=== PATIENT | female | born 1980 | race Caucasian/White ===

== ENCOUNTER 2017-11-21 18:11 | Emergency (ER) | payer BC, OTHER ==
[2017-11-21] MEDS ORDERED: TORAdol 30 mg Injection IM ONE (19:04)
--- NOTE | 2017-11-21 19:07 | ERPHSYRPT ---
- History of Present Illness Time Seen by Provider: 11/21/17 19:00 Source: patient Exam Limitations: no limitations Patient Subjective Stated Complaint: pt was test driving a 4 smith and put right foot down-reports pain and swelling-denies numbness or tingling Triage Nursing Assessment: pt pink warm and [id number] noted to right foot/ankle area-pedal pulse regular Physician History: 37 y/o female comes to the ER with complaints of right ankle pain after testing a 4 X 4 smith for her daughter and twisted her right ankle. Pt states she was not able to put any weight on it. Pt describes the pain as sharp, constant, 10/ 10, worse with movement and pt has not taken any pain meds. Method of Injury: twisted Occurred: just prior to arrival Quality: constant Severity of Pain-Max: severe Severity of Pain-Current: severe Lower Extremities Pain: ankle: right Modifying Factors: Improves With: nothing Associated Symptoms: none Allergies/Adverse Reactions: Latex, Natural Rubber Allergy (Mild, Verified 11/21/17 18:20) Hives states "not severe" Home Medications: No Home Meds [No Home Meds] 1 [facility] UD 02/28/16 [History] Hx Tetanus, Diphtheria Vaccination/Date Given: Yes Hx Influenza Vaccination/Date Given: No Hx Pneumococcal Vaccination/Date Given: No Immunizations Up to Date: Yes - Review of Systems Constitutional: No Fever, No Chills Eyes: No Symptoms Ears, Nose, & Throat: No Symptoms Respiratory: No Cough, No Dyspnea Cardiac: No Chest Pain, No Edema, No Syncope Abdominal/Gastrointestinal: No Abdominal Pain, No Nausea, No Vomiting, No Diarrhea Genitourinary Symptoms: No Dysuria Musculoskeletal: Joint Pain, Joint Swelling, No Back Pain, No Neck Pain Skin: No Rash Neurological: No Dizziness, No Focal Weakness, No Sensory Changes Psychological: No Symptoms Endocrine: No Symptoms All Other Systems: Reviewed and Negative - Past Medical History Pertinent Past Medical History: No Neurological History: No Pertinent History ENT History: No Pertinent History Cardiac History: No Pertinent History Respiratory History: No Pertinent History Endocrine Medical History: Other Musculoskeletal History: Degenerative Disk Disease GI Medical History: Hemorrhoids, Other History: No Pertinent History Psycho-Social History: Bipolar Female Reproductive Disorders: Uterine Cancer Other Medical History: states uterine cyst /cancerous removed yrs ago. - Past Surgical History Past Surgical History: Yes Neuro Surgical History: No Pertinent History Cardiac: No Pertinent History Respiratory: No Pertinent History Gastrointestinal: No Pertinent History Musculoskeletal: No Pertinent History Female Surgical History: No Pertinent History Other Surgical History: LEEP cyst/cervix at age 19,Ear tubes left,Adenoidectomy, D&C x five after five miscarriages,One live - Social History Smoking Status: Never smoker Exposure to second hand smoke: No Drug Use: none Patient Lives Alone: No - Female History Hx Last Menstrual Period: 11/04/17 Hx Now: No - Nursing Vital Signs Nursing Vital Signs: Initial Vital Signs Temperature 97.6 F 11/21/17 18:15 Pulse Rate 89 11/21/17 18:15 Respiratory Rate 18 11/21/17 18:15 Blood Pressure 145/97 11/21/17 18:15 O2 Sat by Pulse Oximetry 97 11/21/17 18:15 Pain Scale Pain Intensity 7 - Physical Exam General Appearance: alert Eyes, Ears, Nose, Throat Exam: moist mucous membranes Neck Exam: non-tender, supple Cardiovascular/Respiratory Exam: chest non-tender, normal breath sounds, regular rate/rhythm, no respiratory distress Gastrointestinal/Abdominal Exam: non-tender, guarding Back Exam: normal inspection, No vertebral tenderness Hips Exam: bilateral: non-tender, normal inspection, normal range of motion, no evidence of injury Legs Exam: bilateral leg: non-tender, normal inspection, normal range of motion , no evidence of injury Knees Exam: bilateral knee: non-tender, normal inspection, normal range of motion, no evidence of injury Ankle Exam: right ankle: limited range of motion, pain, soft tissue tenderness, swelling Foot Exam: right foot: limited range of motion, pain, soft tissue tenderness, swelling Neuro/Tendon Exam: normal sensation, normal motor functions Mental Status Exam: alert, oriented x 3, cooperative Skin Exam: normal color, warm, dry SpO2 Interpretation: normal SpO2: 97 Oxygen Delivery: Room Air - Course Nursing assessment & vital signs reviewed: Yes Ordered Tests: Active Orders 24 hr Category Date Time Status [facility] 11/21/17 19:46 Ordered Crutches STAT Care 11/21/17 19:46 Ordered ANKLE (3 VIEWS) Stat Exams 11/21/17 18:46 Taken FOOT (MINIMUM 3 VIEWS) Stat Exams 11/21/17 18:46 Taken Medication Summary Generic Name Dose Route Start Last Admin Trade Name Ketan PRN Reason Stop Dose Admin Hydrocodone Bitart/Acetaminophen 1 tab 11/21/17 19:47 Vader 5/325 Mg PO 11/21/17 19:48 STAT ONE Discontinued Medications Generic Name Dose Route Start Last Admin Trade Name Ketan PRN Reason Stop Dose Admin Ketorolac Tromethamine 60 mg 11/21/17 19:04 11/21/17 19:15 Toradol 30 Mg Injection IM 11/21/17 19:05 60 mg STAT ONE Administration Ketorolac Tromethamine Confirm 11/21/17 19:10 Toradol 30 Mg Injection Administered 11/21/17 19:11 Dose 60 mg .ROUTE .STK-MED ONE - Progress Progress: unchanged Progress Note: 11/21/17 19:47 The ankle and foot x ray do not show any acute fracture or dislocation. Pt still has pain after receiving toradol. Pt will be giving a short course of norco. Pt will have an asher wrap and will be placed in crutches. - Departure Time of Disposition: 19:48 Departure Disposition: Home Clinical Impression: Ankle sprain Qualifiers: Encounter type: initial encounter Involved ligament of ankle: unspecified ligament Laterality: right Qualified Code(s): S93.401A - Sprain of unspecified ligament of right ankle, initial encounter Condition: Stable Critical Care Time: No Referrals: NYLA SORIANO [Primary Care Provider] - Instructions: Foot Sprain (DC) Additional Instructions: Follow up with your primary care doctor in the next few days if there is no improvement. Prescriptions: Hydrocodone Bit/Acetaminophen [Vader 5-325 Tablet] 1 each PO QID PRN #10 tablet MDD 4 PRN Reason: Severe Pain Ketorolac Tromethamine [Toradol] 10 mg PO QID PRN #20 tablet PRN Reason: Pain
[2017-11-21] MEDS ORDERED: TORAdol 30 mg Injection ONE (19:10)
[2017-11-21] MEDS ORDERED: NORCO 5/325 MG PO ONE (19:47)
[2017-11-21] MEDS ORDERED: NORCO 5/325 MG ONE (20:02)
[2017-11-21 20:22] VITALS: BP 132/83; PULSE 81; O2SAT 100
--- NOTE | 2017-11-22 09:41 | XRAY ---
Exam: 3 view right ankle series from 11/21/2017. Comparison: None. Indication: Patient rolled right ankle/foot today, swelling and ankle. Findings: AP oblique and lateral radiographs percent for evaluation. The distal right tibia and fibula appear intact without fracture. The right ankle mortise appears unremarkable. However, I note at least moderate soft tissue swelling overlying the lateral malleolus and lateral right hindfoot. On the AP image, I see a triangular calcification adjacent to the lateral aspect of the right hindfoot which probably represents a cortical avulsion fracture injury arising from the lateral margin of the right calcaneus. In addition, there is a subtle calcification adjacent to the dorsal aspect of the talonavicular joint on the lateral image which may possibly be related to an accessory ossicle or tiny avulsion fracture injury. Some soft tissue swelling is seen overlying the dorsal aspect of the right hindfoot as well. No other abnormality is seen. Impression: 1. No acute fracture of the distal right tibia or fibula is seen. 2. However, there appears to be a triangular cortical avulsion fracture injury arising off the lateral margin of the right hindfoot (probably the calcaneus) measuring about 6.8 mm x 3.9 mm in greatest cross-section. This is best seen on AP image. There is also equivocal evidence of a tiny cortical avulsion fracture at the posterior margin of the talonavicular joint. I am not sure whether this represents a small avulsion injury or accessory ossicle. However, there is some soft tissue swelling overlying the dorsal aspect of the right hindfoot in the adjacent region. Note. I personally discussed the images and findings with the emergency department doctor () at 9:25 AM on 11/22/2017.
--- NOTE | 2017-11-22 11:03 | XRAY ---
Exam: 3 views of the right foot from 11/21/2017. Comparison: Right ankle films from 11/21/2017. Indication: Rolled right ankle/foot today, swelling in ankle. Findings: AP, oblique, and lateral regress of the right foot obtained. There is at least moderate soft tissue swelling overlying the lateral aspect of the right hindfoot on the AP image. The lateral cortical margin of the distal calcaneus is indistinct on the AP image. The AP image of the right ankle had suggested a cortical avulsion fracture at this level. I also again see a tiny calcification adjacent to the proximal dorsal aspect of the tarsal navicular bone near the talonavicular joint. This could possibly represent a small cortical avulsion fracture injury at this site as well, as I see some overlying soft tissue swelling within the dorsal aspect of the right hindfoot. A small accessory bone is also possible. I see no other evidence of acute fracture or dislocation of the right foot. The tarsal-metatarsal joint spaces align correctly. There is a normal plantar arch. No radiopaque soft tissue foreign body is seen. There is a minimal, broad-based hypertrophic plantar calcaneal spur. Impression: 1. There is significant soft tissue swelling overlying the lateral aspect of the right hindfoot, and to a lesser extent, the dorsal aspect of the right hindfoot. I again suspect a cortical avulsion fracture injury at the distal lateral margin of the right calcaneus as well as perhaps at the posterior margin of the talonavicular joint on the lateral image of the right hindfoot. 2. No other fracture or dislocation of the right foot is suspected. Note: I personally discussed the images and findings with Dr. Umanzor (Emergency Department physician) at 9:25 AM on 11/22/2017.
== END 2017-11-21 20:23 | disposition home or self-care (01) ==
LOC: ED 18:11
DX: S93.401A Sprain of unspecified ligament of right ankle, initial encounter (principal); X50.1XXA Overexertion from prolonged static or awkward postures, initial encounter; Y93.89 Activity, other specified
CPT/HCPCS: 73610; 73630; 96372; 99284; J1885; A9270-GY